=== PATIENT | female | born 1990 | race Two or more races ===

== ENCOUNTER 2018-10-23 11:04 | Observation (INO) | payer MEDICAID ==
[~2018-10-23 11:04] MED LIST: PREN-96 PO
== END 2018-10-23 13:15 | disposition home or self-care (01) | DRG 566 ==
LOC: LDRP 11:04
PROVIDERS: ADMIT Obstetrics & Gynecology; ATTEND Obstetrics & Gynecology
DX: O24.419 Gestational diabetes mellitus in pregnancy, unspecified control (principal); O60.03 Preterm labor without delivery, third trimester; H53.8 Other visual disturbances; Z3A.31 31 weeks gestation of pregnancy
CPT/HCPCS: 59025; 76818; 81002; 82948; 82962; G0378

== ENCOUNTER 2018-10-26 09:05 | Observation (INO) | payer MEDICAID | END 2018-10-26 10:40 | disposition home or self-care (01) | DRG 566 | LOC: LDRP 09:05 | PROVIDERS: ADMIT Obstetrics & Gynecology; ATTEND Obstetrics & Gynecology | DX: O24.419 Gestational diabetes mellitus in pregnancy, unspecified control (principal); O26.893 Other specified pregnancy related conditions, third trimester; M54.9 Dorsalgia, unspecified; N89.8 Other specified noninflammatory disorders of vagina; Z3A.32 32 weeks gestation of pregnancy; R10.2 Pelvic and perineal pain | CPT/HCPCS: 59025; 76818; 81002; 82962; G0378 ==

== ENCOUNTER 2018-10-30 10:03 | Observation (INO) | payer MEDICAID | END 2018-10-30 11:45 | disposition home or self-care (01) | DRG 566 | LOC: LDRP 10:03 | PROVIDERS: ADMIT Obstetrics & Gynecology; ATTEND Obstetrics & Gynecology | DX: O24.419 Gestational diabetes mellitus in pregnancy, unspecified control (principal); Z3A.39 39 weeks gestation of pregnancy | CPT/HCPCS: 59025; 76818; 81002; 82948; 82962; G0378 ==

== ENCOUNTER 2018-11-02 10:26 | Observation (INO) | payer MEDICAID | END 2018-11-02 11:55 | disposition home or self-care (01) | DRG 566 | LOC: LDRP 10:26 | PROVIDERS: ADMIT Specialist; ATTEND Specialist | DX: O00.01 Abdominal pregnancy with intrauterine pregnancy (principal); O24.419 Gestational diabetes mellitus in pregnancy, unspecified control; O26.893 Other specified pregnancy related conditions, third trimester; H53.8 Other visual disturbances; R11.0 Nausea; R10.13 Epigastric pain; Z3A.33 33 weeks gestation of pregnancy | CPT/HCPCS: 76818; 82962; G0378; 59025; 81002; 82948 ==

== ENCOUNTER 2018-11-05 10:52 | Observation (INO) | payer MEDICAID | END 2018-11-05 12:30 | disposition home or self-care (01) | DRG 566 | LOC: LDRP 10:52 | PROVIDERS: ADMIT Specialist; ATTEND Specialist | DX: O24.419 Gestational diabetes mellitus in pregnancy, unspecified control (principal); O26.893 Other specified pregnancy related conditions, third trimester; H53.8 Other visual disturbances; N89.8 Other specified noninflammatory disorders of vagina; R10.2 Pelvic and perineal pain; M54.9 Dorsalgia, unspecified; Z3A.33 33 weeks gestation of pregnancy | CPT/HCPCS: 76818; 81002; 82948; 82962; G0378 ==

== ENCOUNTER 2018-11-09 11:13 | Observation (INO) | payer MEDICAID ==
[2018-11-09] MEDS ORDERED: METF-370 PO (13:04)
== END 2018-11-09 12:45 | disposition home or self-care (01) | DRG 566 ==
LOC: LDRP 11:13
PROVIDERS: ADMIT Obstetrics & Gynecology; ATTEND Obstetrics & Gynecology
DX: O24.419 Gestational diabetes mellitus in pregnancy, unspecified control (principal); Z3A.34 34 weeks gestation of pregnancy
CPT/HCPCS: 59025; 76818; 81002; 82962; G0378

== ENCOUNTER 2018-11-13 10:07 | Observation (INO) | payer MEDICAID ==
[~2018-11-13 10:07] MED LIST changes: +METF-370 PO
== END 2018-11-13 11:26 | disposition home or self-care (01) | DRG 566 ==
LOC: LDRP 10:07
PROVIDERS: ADMIT Obstetrics & Gynecology; ATTEND Obstetrics & Gynecology
DX: O24.419 Gestational diabetes mellitus in pregnancy, unspecified control (principal); O26.893 Other specified pregnancy related conditions, third trimester; M54.9 Dorsalgia, unspecified; R10.2 Pelvic and perineal pain; Z3A.34 34 weeks gestation of pregnancy
CPT/HCPCS: 59025; 76818; 81002; 82962; G0378

== ENCOUNTER 2018-11-16 09:50 | Observation (INO) | payer MEDICAID ==
[2018-11-16] MEDS ORDERED: GLYB1.257 PO (10:59)
== END 2018-11-16 11:50 | disposition home or self-care (01) | DRG 566 ==
LOC: LDRP 09:50
PROVIDERS: ADMIT Specialist; ATTEND Specialist
DX: O24.419 Gestational diabetes mellitus in pregnancy, unspecified control (principal); O26.893 Other specified pregnancy related conditions, third trimester; M54.9 Dorsalgia, unspecified; O21.2 Late vomiting of pregnancy; R10.2 Pelvic and perineal pain; R19.7 Diarrhea, unspecified; Z3A.35 35 weeks gestation of pregnancy
CPT/HCPCS: 59025; 76818; 81002; 82962; G0378

== ENCOUNTER 2018-11-19 11:16 | Observation (INO) | payer MEDICAID ==
[~2018-11-19 11:16] MED LIST changes: +GLYB1.257 PO; -METF-370 PO
== END 2018-11-19 12:12 | disposition home or self-care (01) | DRG 566 ==
LOC: LDRP 11:16
PROVIDERS: ADMIT Obstetrics & Gynecology; ATTEND Obstetrics & Gynecology
DX: O24.419 Gestational diabetes mellitus in pregnancy, unspecified control (principal); Z3A.35 35 weeks gestation of pregnancy
CPT/HCPCS: 59025; 76818; 81002; 82962; G0378

== ENCOUNTER 2018-11-23 04:15 | Observation (INO) | payer MEDICAID | END 2018-12-07 11:25 | disposition home or self-care (01) | DRG 566 | LOC: LDRP 04:15 → UNDOADMOB 04:15 → LDRP 12-07 10:00 | PROVIDERS: ADMIT Specialist; ATTEND Specialist | DX: O24.419 Gestational diabetes mellitus in pregnancy, unspecified control (principal); O26.893 Other specified pregnancy related conditions, third trimester; R11.0 Nausea; R53.1 Weakness; Z3A.38 38 weeks gestation of pregnancy | CPT/HCPCS: 59025; 76818; 81002; G0378 ==

== ENCOUNTER 2018-11-23 10:33 | Observation (INO) | payer MEDICAID | END 2018-11-23 11:40 | disposition home or self-care (01) | DRG 566 | LOC: LDRP 10:33 | PROVIDERS: ADMIT Specialist; ATTEND Specialist | DX: O24.419 Gestational diabetes mellitus in pregnancy, unspecified control (principal); Z3A.36 36 weeks gestation of pregnancy | CPT/HCPCS: 59025; 76818; 81002; 82962; G0378 ==

== ENCOUNTER 2018-11-27 15:15 | Observation (INO) | payer MEDICAID | END 2018-11-27 16:55 | disposition home or self-care (01) | DRG 566 | LOC: LDRP 15:15 | PROVIDERS: ADMIT Obstetrics & Gynecology; ATTEND Obstetrics & Gynecology | DX: O24.419 Gestational diabetes mellitus in pregnancy, unspecified control (principal); Z3A.36 36 weeks gestation of pregnancy | CPT/HCPCS: 59025; 76818; 81002; 82962; G0378 ==

== ENCOUNTER 2018-11-30 14:06 | Observation (INO) | payer MEDICAID | END 2018-11-30 15:15 | disposition home or self-care (01) | DRG 566 | LOC: LDRP 14:06 | PROVIDERS: ADMIT Specialist; ATTEND Specialist | DX: O24.419 Gestational diabetes mellitus in pregnancy, unspecified control (principal); O62.9 Abnormality of forces of labor, unspecified; Z3A.36 36 weeks gestation of pregnancy | CPT/HCPCS: 59025; 76818; 81002; 82962; G0378 ==

== ENCOUNTER 2018-12-04 10:11 | Observation (INO) | payer MEDICAID | END 2018-12-04 12:00 | disposition home or self-care (01) | DRG 566 | LOC: LDRP 10:11 | PROVIDERS: ADMIT Specialist; ATTEND Specialist | DX: O24.419 Gestational diabetes mellitus in pregnancy, unspecified control (principal); O26.893 Other specified pregnancy related conditions, third trimester; N89.8 Other specified noninflammatory disorders of vagina; O62.9 Abnormality of forces of labor, unspecified; Z3A.37 37 weeks gestation of pregnancy | CPT/HCPCS: 59025; 76818; 81002; 82962; G0378 ==

== ENCOUNTER 2019-03-01 09:20 | Emergency (ER) | payer MEDICAID ==
[~2019-03-01] VITALS: Ht 162.6 cm; Wt 72.6 kg
[2019-03-01 10:13] LABS: Urine Bacteria FEW /hpf (None Seen); Urine Blood Negative /uL (Negative); Urine Mucus FEW (None Seen); Urine Specific Gravity 1.023 (1.001-1.035); Urine WBC 1 /hpf (0 - 5)
[2019-03-01 10:31] LABS: Basophils # (auto) 0 uL; Basophils % (auto) 0.4 % (0.0-2.0); Eosinophils # (auto) 0.1 uL; Hemoglobin 12.6 g/dL (12.2-16.2); Lymphocytes # (auto) 1.9 uL; Mean Corpuscular Volume 78.6 fL (80.0-100.0); Monocytes # (auto) 0.5 uL; Platelet Count (auto) 237 10^3/uL (140-450)
[2019-03-01 10:33] LABS: Eosinophils % (auto) 1.3 % (0.0-7.0); Hematocrit 38.7 % (36.0-46.0); Lymphocytes % (auto) 29.8 % (10.0-50.0); Mean Corpuscular Hemoglobin 25.6 pg (28.0-32.0); Mean Corpuscular Hgb Conc. 32.6 g/dL (32.0-36.0); Monocytes % (auto) 7.5 % (0.0-12.0); Neutrophils # (auto) 3.9 uL; Nucleated Red Blood Cells % 0.1 %; Red Blood Cells 4.92 10^6/uL (4.0-5.20); Red Cell Distribution Width 19.2 % (11.8-14.3); White Blood Cell 6.5 10^3/uL (4.4-10.8)
[2019-03-01 10:52] LABS: Albumin 4.2 g/dL (3.4-5.0); BUN/Creatinine Ratio 18.3; Calcium 9.3 mg/dL (8.5-10.1); Potassium 3.9 mmol/L (3.5-5.1)
[2019-03-01 10:55] LABS: Bilirubin, Total 0.4 mg/dL (0.2-1.0); Total Protein 7.9 g/dL (6.4-8.2)
[2019-03-01 13:32] VITALS: BP 100/49
== END 2019-03-01 13:41 | disposition home or self-care (01) ==
LOC: ER 09:29
DX: N20.0 Calculus of kidney (principal); N39.0 Urinary tract infection, site not specified; Z79.84 Long term (current) use of oral hypoglycemic drugs; Z79.899 Other long term (current) drug therapy; Z90.49 Acquired absence of other specified parts of digestive tract
CPT/HCPCS: 36415; 74176; 80053; 81001; 81025; 83690; 85025

== ENCOUNTER 2020-05-14 09:25 | Emergency (ER) | payer MEDICAID ==
[~2020-05-14] VITALS: Ht 162.6 cm; Wt 64.4 kg
[2020-05-14 10:30] LABS: Basophils # (auto) 0 10 ^3/uL (0-0.2); Basophils % (auto) 0.2 % (0.0-2.0); Eosinophils # (auto) 0 10 ^3/uL (0-0.8); Eosinophils % (auto) 0.8 % (0.0-7.0); Hematocrit 34.5 % (36.0-46.0); Hemoglobin 11.9 g/dL (12.2-16.2); Lymphocytes # (auto) 1.2 10 ^3/uL (0.4-5.4); Lymphocytes % (auto) 21.1 % (10.0-50.0); Mean Corpuscular Hemoglobin 29.3 pg (28.0-32.0); Mean Corpuscular Hgb Conc. 34.4 g/dL (32.0-36.0); Monocytes # (auto) 0.4 10 ^3/uL (0-1.3); Neutrophils # (auto) 3.9 10 ^3/uL (1.6-8.6); Neutrophils % (auto) 70.9 % (37.0-80.0); Nucleated Red Blood Cells % 0.1 %; Platelet Count (auto) 169 10^3/uL (140-450); Red Blood Cells 4.06 10^6/uL (4.0-5.20); Red Cell Distribution Width 17.5 % (11.8-14.3); White Blood Cell 5.5 10^3/uL (4.4-10.8)
[2020-05-14 10:39] LABS: Urine Amorphous Crystal MOD /hpf (None Seen); Urine Bacteria FEW /hpf (None Seen); Urine Blood Negative /uL (Negative); Urine Mucus FEW (None Seen); Urine Specific Gravity 1.018 (1.001-1.035); Urine WBC 10 /hpf (0 - 5); Urine WBC Clumps PRESENT /hpf (None Seen)
[2020-05-14 11:34] VITALS: BP 100/63
== END 2020-05-14 11:37 | disposition home or self-care (01) ==
LOC: ER 09:25
DX: O23.42 Unspecified infection of urinary tract in pregnancy, second trimester (principal); J45.909 Unspecified asthma, uncomplicated; Z3A.15 15 weeks gestation of pregnancy
CPT/HCPCS: 36415; 76805; 81001; 84702; 85025

== ENCOUNTER 2020-07-09 12:49 | Observation (INO) | payer MEDICAID ==
[~2020-07-09] VITALS: Ht 165.1 cm; Wt 66.7 kg
[2020-07-09] MEDS: TERBUTALINE SULFATE 1 MG/ML 1ML VIAL SC SCH ×3 (14:18→15:15)
[2020-07-09 14:54] LABS: Urine Amorphous Crystal FEW /hpf (None Seen); Urine Bacteria FEW /hpf (None Seen); Urine Blood Negative /uL (Negative); Urine Mucus FEW (None Seen); Urine WBC 3 /hpf (0 - 5)
[2020-07-09] MEDS ORDERED: NIFEdipine 10 MG CAP PO ONE (15:15)
[2020-07-09] MEDS ORDERED: diphenhdrAMINE HCL 50 MG/1 ML VL ONE ×2 (15:22→15:27)
[2020-07-09] MEDS ORDERED: diphenhdrAMINE HCL 50 MG/1 ML VL IM ONE (15:30)
[2020-07-09] MEDS ORDERED: BETAMETHASONE ACET (6MG/ML) 5ML VIAL IM ONE (16:45)
== END 2020-07-09 17:20 | disposition home or self-care (01) ==
LOC: LDRP 12:49 → UNDOADMOB 12:49 → UNDODISOB 17:20
PROVIDERS: ADMIT Obstetrics & Gynecology; ATTEND Obstetrics & Gynecology
DX: O62.9 Abnormality of forces of labor, unspecified (principal); O34.62 Maternal care for abnormality of vagina, second trimester; N89.8 Other specified noninflammatory disorders of vagina; Z3A.23 23 weeks gestation of pregnancy
CPT/HCPCS: 59025; 76805; 81001; 81002; 87210; 96372; G0378; J0702; J1200; J3105

== ENCOUNTER 2020-07-10 12:02 | Observation (INO) | payer MEDICAID ==
[~2020-07-10] VITALS: Ht 162.6 cm; Wt 68.0 kg
[2020-07-10] MEDS ORDERED: BETAMETHASONE ACET (6MG/ML) 5ML VIAL IM ONE (12:30)
[2020-07-10 13:24] LABS: Urine Amorphous Crystal FEW /hpf (None Seen); Urine Bacteria FEW /hpf (None Seen); Urine Blood Negative /uL (Negative); Urine Mucus FEW (None Seen); Urine Specific Gravity 1.022 (1.001-1.035); Urine WBC 2 /hpf (0 - 5)
== END 2020-07-10 14:05 | disposition home or self-care (01) ==
LOC: LDRP 12:02
PROVIDERS: ADMIT Specialist; ATTEND Specialist
DX: O60.02 Preterm labor without delivery, second trimester (principal); Z86.32 Personal history of gestational diabetes; Z3A.23 23 weeks gestation of pregnancy
CPT/HCPCS: 59025; 81001; 81002; 82962; 96372; G0378; J0702

== ENCOUNTER 2020-07-19 09:22 | Observation (INO) | payer MEDICAID ==
[~2020-07-19] VITALS: Ht 162.6 cm; Wt 68.0 kg
== END 2020-07-19 11:33 | disposition home or self-care (01) ==
LOC: LDRP 09:22
PROVIDERS: ADMIT Specialist; ATTEND Specialist
DX: O60.02 Preterm labor without delivery, second trimester (principal); Z20.828 Contact with and (suspected) exposure to other viral communicable diseases; Z3A.25 25 weeks gestation of pregnancy
CPT/HCPCS: 36415; 59025; 81002; 87426; G0378; U0003

== ENCOUNTER 2020-07-26 09:07 | Observation (INO) | payer MEDICAID ==
[2020-08-10] MEDS ORDERED: NIF10C PO (10:48)
== END 2020-07-26 10:59 | disposition home or self-care (01) ==
LOC: LDRP 09:07
PROVIDERS: ADMIT Obstetrics & Gynecology; ATTEND Obstetrics & Gynecology
DX: O24.419 Gestational diabetes mellitus in pregnancy, unspecified control (principal); O42.912 Preterm premature rupture of membranes, unspecified as to length of time between rupture and onset of labor, second trimester; Z3A.26 26 weeks gestation of pregnancy
CPT/HCPCS: 59025; 81002; 84112; G0378; Q0114

== ENCOUNTER 2020-08-09 10:00 | Observation (INO) | payer MEDICAID ==
[~2020-08-09] VITALS: Ht 162.6 cm; Wt 68.9 kg
[2020-08-10] MEDS ORDERED: NIF10C GT (10:48)
== END 2020-08-09 11:28 | disposition home or self-care (01) ==
LOC: LDRP 10:00
PROVIDERS: ADMIT Specialist; ATTEND Specialist
DX: O60.03 Preterm labor without delivery, third trimester (principal); Z3A.28 28 weeks gestation of pregnancy
CPT/HCPCS: 59025; 81002; G0378

== ENCOUNTER 2020-08-10 10:01 | Observation (INO) | payer MEDICAID ==
[~2020-08-10 10:01] MED LIST changes: -GLYB1.257 PO
[2020-08-10] MEDS ORDERED: TERBUTALINE SULFATE 1 MG/ML 1ML VIAL SC ONE (10:33)
[2020-08-10] MEDS ORDERED: TERBUTALINE SULFATE 1 MG/ML 1ML VIAL SC SCH (10:45)
[2020-08-10] MEDS ORDERED: NIF10C GT (10:48)
== END 2020-08-10 11:36 | disposition home or self-care (01) ==
LOC: LDRP 10:01
PROVIDERS: ADMIT Obstetrics & Gynecology; ATTEND Obstetrics & Gynecology
DX: O60.03 Preterm labor without delivery, third trimester (principal); O62.9 Abnormality of forces of labor, unspecified; O26.893 Other specified pregnancy related conditions, third trimester; Z3A.28 28 weeks gestation of pregnancy
CPT/HCPCS: 59025; 81002; 96372; G0378; J3105

== ENCOUNTER 2020-08-23 09:00 | Observation (INO) | payer MEDICAID ==
[~2020-08-23 09:00] MED LIST changes: +NIF10C PO
== END 2020-08-23 10:35 | disposition home or self-care (01) ==
LOC: LDRP 09:00
PROVIDERS: ADMIT Obstetrics & Gynecology; ATTEND Obstetrics & Gynecology
DX: O60.03 Preterm labor without delivery, third trimester (principal); Z3A.29 29 weeks gestation of pregnancy
CPT/HCPCS: 59025; 81002; G0378

== ENCOUNTER 2020-08-30 08:37 | Observation (INO) | payer MEDICAID | END 2020-08-30 10:03 | disposition home or self-care (01) | LOC: LDRP 08:37 | PROVIDERS: ADMIT Obstetrics & Gynecology; ATTEND Obstetrics & Gynecology | DX: O60.03 Preterm labor without delivery, third trimester (principal); O34.63 Maternal care for abnormality of vagina, third trimester; N89.8 Other specified noninflammatory disorders of vagina; Z79.899 Other long term (current) drug therapy; Z3A.30 30 weeks gestation of pregnancy | CPT/HCPCS: 59025; 81002; G0378 ==

== ENCOUNTER 2020-09-07 11:13 | Observation (INO) | payer MEDICAID ==
[~2020-09-07] VITALS: Ht 162.6 cm; Wt 72.6 kg
== END 2020-09-07 12:30 | disposition home or self-care (01) ==
LOC: LDRP 11:13
PROVIDERS: ADMIT Obstetrics & Gynecology; ATTEND Obstetrics & Gynecology
DX: O60.03 Preterm labor without delivery, third trimester (principal); O26.893 Other specified pregnancy related conditions, third trimester; R51.9 Headache, unspecified; H53.8 Other visual disturbances; Z3A.31 31 weeks gestation of pregnancy
CPT/HCPCS: 59025; 81002; 82962; G0378

== ENCOUNTER 2020-09-17 11:05 | Observation (INO) | payer MEDICAID ==
[~2020-09-17] VITALS: Ht 162.6 cm; Wt 72.6 kg
[2020-09-17] MEDS ORDERED: TERBUTALINE SULFATE 1 MG/ML 1ML VIAL SC SCH (12:00)
== END 2020-09-17 13:25 | disposition home or self-care (01) ==
LOC: LDRP 11:05
PROVIDERS: ADMIT Obstetrics & Gynecology; ATTEND Obstetrics & Gynecology
DX: O26.893 Other specified pregnancy related conditions, third trimester (principal); R10.2 Pelvic and perineal pain; Z3A.33 33 weeks gestation of pregnancy
CPT/HCPCS: 59025; 76815; 81002; 96372; G0378; J3105

== ENCOUNTER 2020-09-23 14:15 | Observation (INO) | payer MEDICAID ==
[~2020-09-23] VITALS: Ht 162.6 cm; Wt 72.6 kg
[2020-09-23] MEDS ORDERED: LACTATED RINGER'S 1,000 ML IV ONE (15:15)
[2020-09-23] MEDS: TERBUTALINE SULFATE 1 MG/ML 1ML VIAL SC SCH ×2 (15:29→16:20)
== END 2020-09-23 17:07 | disposition home or self-care (01) ==
LOC: LDRP 14:15
PROVIDERS: ADMIT Specialist; ATTEND Specialist
DX: O99.613 Diseases of the digestive system complicating pregnancy, third trimester (principal); Z20.822 Contact with and (suspected) exposure to COVID-19; R19.7 Diarrhea, unspecified; Z3A.34 34 weeks gestation of pregnancy
CPT/HCPCS: 36415; 59025; 81002; 84112; 87426; 96360; 96372; G0378; J3105; Q0114; U0003

== ENCOUNTER 2020-09-27 11:55 | Observation (INO) | payer MEDICAID ==
[~2020-09-27] VITALS: Ht 162.6 cm; Wt 72.6 kg
== END 2020-09-27 12:55 | disposition home or self-care (01) ==
LOC: LDRP 11:55
PROVIDERS: ADMIT Obstetrics & Gynecology; ATTEND Obstetrics & Gynecology
DX: O60.03 Preterm labor without delivery, third trimester (principal); Z3A.34 34 weeks gestation of pregnancy
CPT/HCPCS: 59025; 81002; G0378

== ENCOUNTER 2020-10-03 19:37 | Observation (INO) | payer MEDICAID ==
[~2020-10-03] VITALS: Ht 162.6 cm; Wt 73.5 kg
== END 2020-10-03 21:03 | disposition home or self-care (01) ==
LOC: LDRP 19:37
PROVIDERS: ADMIT Obstetrics & Gynecology; ATTEND Obstetrics & Gynecology
DX: O60.03 Preterm labor without delivery, third trimester (principal); O26.853 Spotting complicating pregnancy, third trimester; O26.893 Other specified pregnancy related conditions, third trimester; N89.8 Other specified noninflammatory disorders of vagina; Z3A.35 35 weeks gestation of pregnancy
CPT/HCPCS: G0378 ×2; 59025; 81002

== ENCOUNTER 2020-10-10 13:20 | Observation (INO) | payer MEDICAID | END 2020-10-10 15:13 | disposition home or self-care (01) | LOC: LDRP 13:20 | PROVIDERS: ADMIT Obstetrics & Gynecology; ATTEND Obstetrics & Gynecology | DX: O60.03 Preterm labor without delivery, third trimester (principal); O42.913 Preterm premature rupture of membranes, unspecified as to length of time between rupture and onset of labor, third trimester; O99.891 Other specified diseases and conditions complicating pregnancy; M54.9 Dorsalgia, unspecified; Z3A.36 36 weeks gestation of pregnancy | CPT/HCPCS: 59025; 81002; 84112; G0378; Q0114 ==

== ENCOUNTER 2020-10-15 06:01 | Observation (INO) | payer MEDICAID | END 2020-10-15 07:05 | disposition home or self-care (01) | LOC: LDRP 06:01 | PROVIDERS: ADMIT Obstetrics & Gynecology; ATTEND Obstetrics & Gynecology | DX: O62.9 Abnormality of forces of labor, unspecified (principal); Z3A.37 37 weeks gestation of pregnancy | CPT/HCPCS: 59025; 81002; G0378 ==

== ENCOUNTER 2020-10-15 17:08 | Observation (INO) | payer MEDICAID | END 2020-10-15 20:14 | disposition home or self-care (01) | LOC: LDRP 17:08 | PROVIDERS: ADMIT Obstetrics & Gynecology; ATTEND Obstetrics & Gynecology | DX: O26.613 Liver and biliary tract disorders in pregnancy, third trimester (principal); O26.62 Liver and biliary tract disorders in childbirth; K83.1 Obstruction of bile duct; O99.52 Diseases of the respiratory system complicating childbirth; J45.909 Unspecified asthma, uncomplicated; O62.9 Abnormality of forces of labor, unspecified; Z3A.37 37 weeks gestation of pregnancy | CPT/HCPCS: 59025; 81002; G0378 ==

== ENCOUNTER → 2020-10-17 | Outpatient (CLI) | payer MEDICAID ==
[~2020-10-17] MED LIST changes: -NIF10C PO
[2020-10-17 11:36] LABS: Basophils # (auto) 0 10 ^3/uL (0-0.2); Eosinophils # (auto) 0.1 10 ^3/uL (0-0.8); Hemoglobin 10.6 g/dL (12.2-16.2); Neutrophils # (auto) 6.7 10 ^3/uL (1.6-8.6); Nucleated Red Blood Cells % 0.1 %
[2020-10-17 11:38] LABS: Basophils % (auto) 0.2 % (0.0-2.0); Eosinophils % (auto) 0.8 % (0.0-7.0); Hematocrit 32.6 % (36.0-46.0); Lymphocytes # (auto) 1.5 10 ^3/uL (0.4-5.4); Lymphocytes % (auto) 17.3 % (10.0-50.0); Mean Corpuscular Hemoglobin 24.3 pg (28.0-32.0); Mean Corpuscular Hgb Conc. 32.4 g/dL (32.0-36.0); Mean Corpuscular Volume 75.1 fL (80.0-100.0); Monocytes # (auto) 0.6 10 ^3/uL (0-1.3); Monocytes % (auto) 6.3 % (0.0-12.0); Neutrophils % (auto) 75.4 % (37.0-80.0); Platelet Count (auto) 164 10^3/uL (140-450); Red Blood Cells 4.34 10^6/uL (4.0-5.20); Red Cell Distribution Width 15.7 % (11.8-14.3); White Blood Cell 8.8 10^3/uL (4.4-10.8)
[2020-10-18 04:06] LABS: RPR Non Reactive (Non Reactive)
== END | disposition home or self-care (01) ==
LOC: LAB 11:09
PROVIDERS: ATTEND Obstetrics & Gynecology
DX: Z34.80 Encounter for supervision of other normal pregnancy, unspecified trimester (principal); Z3A.37 37 weeks gestation of pregnancy
CPT/HCPCS: 36415; 85025; 86592